=== PATIENT | female | born 1995 | race Caucasian/White ===

== ENCOUNTER 2019-02-04 13:03 | Emergency (ER) | payer SELFPAY ==
[2019-02-04 13:08] VITALS: BP 146/88
== END 2019-02-04 15:24 | disposition left against medical advice (07) ==
LOC: ED 13:03
DX: Z53.21 Procedure and treatment not carried out due to patient leaving prior to being seen by health care provider (principal)
CPT/HCPCS: 99281

== ENCOUNTER 2019-02-04 14:18 | Emergency (ER) | payer SELFPAY ==
[2019-02-04 14:47] VITALS: BP 116/69
--- NOTE | 2019-02-04 15:10 | UC ---
Abdominal Pain Female HPI - HPI Summary HPI Summary: 23 y/o female presents to the urgent care c/o RLQ abdominal pain and RT side pelvic pain for the past 2-3 weeks. Pt reports she had a surgical 3 weeks ago and since then she has experience intermittent RLQ abdominal pain had surgical 2-3 weeks ago, pain has been since then pain has been on and off, but today pain has worsened and pt has had constipation and nausea/vomiting and loss of appetite - History of Current Complaint Chief Complaint: UCAbdominalPain Stated Complaint: LOWER ABD PAIN Time Seen by Provider: 02/04/19 15:08 Hx Obtained From: Patient Hx Last Menstrual Period: end of november Onset/Duration: Gradual Onset Pain Intensity: 8 Allergies/Adverse Reactions: Allergies Allergy/AdvReac Type Severity Reaction Status Date / Time No Known Allergies Allergy Verified 02/04/19 14:47 PMH/Surg Hx/FS Hx/Imm Hx - Surgical History Surgical History: Yes Surgery Procedure, Year, and Place: cone biopsy. surgical december 2018 - Social History Alcohol Use: Rare Substance Use Type: None Smoking Status (MU): Heavy Every Day Tobacco Smoker Type: Cigarettes Amount Used/How Often: 3-4 cig per day Physical Exam - Summary Physical Exam Summary: Vital Signs Reviewed: Yes General:Patient is a well developed and nourished female who is sitting comfortable in the examining table. Patient is not in any acute respiratory distress. Eyes: Positive: Conjunctiva Clear - PERRLA, EOMI, fundi grossly normal ENT: Positive: Normal ENT inspection, Hearing grossly normal, Pharynx normal, TMs normal Neck: Positive: Supple, Nontender, No Lymphadenopathy Respiratory: Positive: Chest non-tender, Lungs clear, Normal breath sounds, No respiratory distress Cardiovascular: Positive: RRR,S1 and S2 present, No Murmur, Pulses Normal, Brisk Capillary Refill Abdomen Description: Positive: Nontender, Other: - Abd: Flat with no distention. No surface trauma, scars, incisions. hyperactive bowel sounds present in all four quadrants. RLQ tenderness on palapation, no gurading or rigidity to palpation. No masses palpated, no pulsation in epigastric area. No organomegaly. Negative [place] signs. No periumbilical tenderness. No rebound in the lower quadrants. Positive tenderness McBurneys point.. RT side suprapubic tenderness with no distension. Good femoral pulses bilaterally. No hernia noted. No CVAT bilaterally Musculoskeletal: Positive: Strength Intact, ROM Intact, No Edema,FROM in all major joints, no edema, no cyanosis or clubbing. Neuro: Alert and oriented x 3. No acute neurological deficits. Speech is normal. Psychological: WNL Skin: Dry and warm Vital Signs: Initial Vital Signs Temp 97.9 F 02/04/19 14:41 Pulse 68 02/04/19 14:41 Resp 14 02/04/19 14:41 BP 116/69 02/04/19 14:41 Pulse Ox 100 02/04/19 14:41 Abd Pain Female Course/Dx - Course Course Of Treatment: Pt is Hemodynamically stable w/ hyperactive bowel sounds present in all four quadrants. RLQ abdominal tenderness, w/ positive McBurney's point tenderness on palaption, no d guarding on examination. UA ordered: negative, test : negative. I think recently had a recent surgical [address] w/o contrast ordered: Impression: IMPRESSION: No definite evidence of obstructive uropathy is noted. Appendicoliths are noted in the appendix however no evidence of dilated appendix is noted. Noo bowel obstruction is noted as per radiologist. Transvaginal US ordered. . Pt's symptoms discussed w/ Dr Banks - Differential Dx/Diagnosis Differential Diagnosis: Appendicitis, Constipation, Gall Bladder Disease, Ovarian Cyst, , Renal Colic, Urinary Tract Infection Provider Diagnosis: Right lower quadrant abdominal pain Discharge - Sign-Out/Discharge Documenting (check all that apply): Patient Departure All imaging exams completed and their final reports reviewed: Yes - Discharge Plan Condition: Stable Disposition: AGAINST MEDICAL ADVICE Prescriptions: Ondansetron ODT TAB* [Zofran 4 MG Odt TAB*] 4 mg PO Q8H PRN #9 tab.odt PRN Reason: nausea and vomiting Polyethylene Glycol 3350* [Miralax*] 17 gm PO DAILY #1 bottle Patient Education Materials: Acute Abdominal Pain (ED) Forms: *Work Release Referrals: Megan Aguirre MD [Primary Care Provider] - Additional Instructions: I think you need a higher level or care for your presenting symptoms. I highly recommend you to go to the ER for further evaluation and treatment. The risks of not going can be , sepsis, appendicitis, peritonitis, ovarian cyst or torsion, etc. You declined my recommendations since you are feeling better. Please if pain returns please go immediately to the ER. Take Miralax to alleviate your constipation, increase hydration, eat fiber. - Billing Disposition and Condition Condition: STABLE Disposition: Against Medical Advice
[2019-02-04] MEDS ORDERED: Ketorolac INJ* 30 MG/ML 1 ML VIAL IM ONE (15:30)
[2019-02-04] MEDS ORDERED: Ondansetron ODT TAB* 4 MG PO ONE (15:30)
== END 2019-02-04 17:15 | disposition left against medical advice (07) ==
LOC: UCEAST 14:18
DX: R10.31 Right lower quadrant pain (principal); R10.2 Pelvic and perineal pain; K59.00 Constipation, unspecified; R11.2 Nausea with vomiting, unspecified; R63.0 Anorexia; F17.210 Nicotine dependence, cigarettes, uncomplicated; Z98.890 Other specified postprocedural states
CPT/HCPCS: 74176; 81003; 84702; 99202; A9270-GY; G0463; J1885

== ENCOUNTER 2019-05-21 19:27 | Emergency (ER) | payer MEDICAID, OTHER ==
--- NOTE | 2019-05-21 19:56 | ED ---
Substance Abuse/Use - HPI Summary HPI Summary: Pt is a 24 y/o F presenting to the ED brought in by EMS for an overdose. Per EMS , the pt overdosed on heroin and her fiance called EMS. EMS states that the fiance said she either went to the hospital or he kicked her out. On EMS arrival, she had agonal breathing and 2 respirations/minute. 4mg intranasal Narcan given total, 2mg at 1851 and 2mg at 1856. Pt states I dont know when asked if she used anything besides heroin. She has bruising over her R eye that she states is from a fall, and denies any visual changes as a result of this fall. She notes she is cold and has chills. - History Of Current Complaint Chief Complaint: EDSubstanceAbuse Stated Complaint: OVERDOSE PER EMS Hx Obtained From: Patient, EMS Hx Last Menstrual Period: 11/23/2018 Onset/Duration of Drug/ETOH Abuse: Hours Ingestion History: Type/Name Of Drug - heroin Overdose Characteristics: IV Severity Initially: Moderate Severity Currently: Mild Aggravating Factor(s): Nothing Alleviating Factor(s): Nothing Associated Signs And Symptoms: Tremulous - Allergies/Home Medications Allergies/Adverse Reactions: Allergies Allergy/AdvReac Type Severity Reaction Status Date / Time No Known Allergies Allergy Verified 05/21/19 19:32 PMH/Surg Hx/FS Hx/Imm Hx Previously Healthy: Yes Endocrine/Hematology History: Denies: Hx Diabetes Cardiovascular History: Denies: Hx Hypertension Psychiatric History: Reports: Hx Substance Abuse - Surgical History Surgery Procedure, Year, and Place: cone biopsy. surgical december 2018 Infectious Disease History: No Infectious Disease History: Denies: Traveled Outside the [place] in Last 30 Days - Family History Known Family History: Positive: Hypertension - Social History Lives: With Family - fiancee Alcohol Use: Rare Hx Substance Use: Yes Substance Use Type: Reports: Heroin Hx Tobacco Use: Yes Smoking Status (MU): Heavy Every Day Tobacco Smoker Type: Cigarettes Amount Used/How Often: 3-4 cig per day Review of Systems Positive: Chills Eyes: Negative Positive: Bruising - over R eye All Other Systems Reviewed And Are Negative: Yes Physical Exam - Summary Physical Exam Summary: Constitutional: Well-developed, Well-nourished, Alert. (-) Distressed Skin: Warm, Dry. Bilateral track oseguera to the antecubital fossa. HENT: Normocephalic; Atraumatic Eyes: Periorbital ecchymosis of R eye. Conjunctiva normal. Neck: Musculoskeletal ROM normal neck. (-) JVD, (-) Stridor, (-) Nuchal rigidity Cardio: Rhythm regular, rate normal, Heart sounds normal; Intact distal pulses; Radial pulses are 2+ and symmetric. (-) Murmur Pulmonary/Chest wall: Effort normal. (-) Respiratory distress, (-) Wheezes, (-) Rales Abd: Soft, (-) tenderness, (-) Distension, (-) Guarding, (-) Rebound Musculoskeletal: (-) Edema Lymph: (-) Cervical adenopathy Neuro: Alert, Oriented x3 Psych: Mood and affect Normal Triage Information Reviewed: Yes Vital Signs On Initial Exam: Initial Vitals Temp Pulse Resp BP Pulse Ox 98.7 F 109 26 130/74 98 05/21/19 19:28 05/21/19 19:28 05/21/19 19:28 05/21/19 19:28 05/21/19 19:28 Vital Signs Reviewed: Yes Procedures - Sedation Patient Received Moderate/Deep Sedation with Procedure: No Diagnostics - Vital Signs Vital Signs Temp Pulse Resp BP Pulse Ox 05/21/19 19:31 108 25 130/74 98 05/21/19 19:30 107 34 98 05/21/19 19:28 98.7 F 109 26 130/74 98 - Laboratory Lab Statement: Any lab studies that have been ordered have been reviewed, and results considered in the medical decision making process. Re-Evaluation - Re-Evaluation First Eval Re-Evaluation Time: 21:45 Comment: MOMO. AAOx3, ambulating in ED. Course/Dx - Course Course Of Treatment: 24-year-old female presents after opiate overdose requiring Narcan. Patient observed for 2 hours. Patient has ecchymosis dry, denies being assaulted, feels safe at home. - Diagnoses Provider Diagnoses: Substance abuse Discharge ED - Sign-Out/Discharge Documenting (check all that apply): Patient Departure - Discharge Plan Condition: Stable Disposition: HOME Patient Education Materials: Narcotic Safety (ED), Opioid Safety (ED) Referrals: Megan Aguirre MD [Primary Care Provider] - Additional Instructions: You were seen in the emergency department after opiate overdose requiring Narcan. Please do not use drugs. - Billing Disposition and Condition Condition: STABLE Disposition: Home - Attestation Statements Document Initiated by Danielaibe: Yes Documenting Scribe: Shoshana Connelly Provider For Whom Fatmata is Documenting (Include Credential): Savannah Ruggiero MD. Scribe Attestation: Shoshana Ennis, scribed for Savannah Ruggiero MD. on 05/21/19 at 2144. Scribe Documentation Reviewed: Yes Provider Attestation: The documentation as recorded by the scribe, Shoshana Connelly accurately reflects the service I personally performed and the decisions made by , Savannah Ruggiero MD. Status of Scribe Document: Viewed
[2019-05-21] MEDS ORDERED: Acetaminophen TAB* 325 MG PO ONE (20:38)
[2019-05-21 22:10] VITALS: BP 136/90
== END 2019-05-21 22:09 | disposition home or self-care (01) ==
LOC: ED 19:27
DX: F11.10 Opioid abuse, uncomplicated (principal); F17.210 Nicotine dependence, cigarettes, uncomplicated; Z79.899 Other long term (current) drug therapy
CPT/HCPCS: 99283; A9270-GY